=== PATIENT | male | born 1985 | race Caucasian/White ===

== ENCOUNTER 2017-04-03 18:53 | Inpatient (IN) | payer OTHER ==
[~2017-04-03] VITALS: Ht 172.7 cm; Wt 85.0 kg
[2017-04-03] MEDS ORDERED: SODIUM CHLOR 0.9% 1000 ML INJ 1,000 ML IV SCH (19:12)
[2017-04-03] MEDS ORDERED: ZOLO50TA PO (19:14)
[2017-04-03] MEDS ORDERED: DIPHTH/TETANUS/ACEL PERTUSSIS (BOOSTER) 0.5 ML VIAL/PFS IM ONE (19:15)
[2017-04-03] MEDS ORDERED: SODIUM CHLORIDE 0.9% FLUSH 10 ML FLUSH IVF PRN (19:15)
[2017-04-03] MEDS ORDERED: VANCOMYCIN INJ 1,000 MG in SODIUM CHLOR 0.9% 250 ML INJ 250 ML IV ONE (19:15)
[2017-04-03] MEDS ORDERED: ONDANSETRON HCL 4 MG/2 ML VIAL IV PUSH ONE (19:15)
[2017-04-03] MEDS ORDERED: MORPHINE SULFATE 4 MG/ML INJ IV PUSH ONE (19:15)
[2017-04-03] MEDS ORDERED: CLINDAMYCIN INJ 600 MG in SODIUM CHLORIDE 0.9% INJ 100 ML IV ONE (19:15)
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
[2017-04-03 19:30] VITALS: BP 114/78; PULSE 89; RESP 22; TEMP 99; O2SAT 99
[2017-04-03 19:42] LABS: AUTOMATED NEUTROPHIL # 13.5 TH/MM3 (1.8-7.7); BASOPHIL # 0.1 TH/MM3 (0-0.2); BASOPHIL % 0.4 % (0.0-2.0); EOSINOPHIL # 0.1 TH/MM3 (0-0.4); EOSINOPHIL % 0.4 % (0.0-4.0); HEMATOCRIT 42.9 % (39.0-51.0); HEMO FLAGS DIFF FINAL; LYMPHOCYTE # 5.1 TH/MM3 (1.0-4.8); MEAN CELL VOLUME 84.8 FL (80.0-100.0); MEAN CORPUSCULAR HEMOGLOBIN 29.4 PG (27.0-34.0); MEAN CORPUSCULAR HGB CONC 34.7 % (32.0-36.0); NEUT % 68.2 % (16.0-70.0); PLATELET COUNT 361 TH/MM3 (150-450); RED BLOOD COUNT 5.06 MIL/MM3 (4.50-5.90); RED CELL DISTRIBUTION WIDTH 12.8 % (11.6-17.2); WHITE BLOOD COUNT 19.7 TH/MM3 (4.0-11.0)
[2017-04-03 19:43] LABS: I-STAT POTASSIUM 3.4 MMOL/L (3.5-4.9); I-STAT SODIUM 141 MMOL/L (138-146)
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
[2017-04-03 19:51] LABS: APTT (PATIENT) 24.5 SEC (24.3-30.1); INTERNATIONAL NORMALIZED RATIO 0.9 RATIO; PROTHROMBIN TIME - PATIENT 10.1 SEC (9.8-11.6)
[2017-04-03] MEDS ORDERED: IOHEXOL 350 MG/ML 10 ML VIAL (for RAD DIAG) IVCONTRAST ONE (19:52)
[2017-04-03 19:56] LABS: ALT (GPT) 108 U/L (12-78)
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
[2017-04-03 19:58] LABS: ALKALINE PHOSPHATASE 77 U/L (45-117); TOTAL BILIRUBIN ADULT 0.3 MG/DL (0.2-1.0)
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
[2017-04-03 20:08] LABS: ANION GAP 12 MEQ/L (5-15); AST (GOT) 105 U/L (15-37); BICARBONATE 21.9 MEQ/L (21.0-32.0); BLOOD UREA NITROGEN 10 MG/DL (7-18); CHLORIDE 106 MEQ/L (98-107); GLOMERULAR FILTRATION RATE 69 ML/MIN (>89); POTASSIUM 3.3 MEQ/L (3.5-5.1); SODIUM (NA) 140 MEQ/L (136-145)
[2017-04-03 20:09] LABS: ALCOHOL 227 MG/DL (0-5)
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
[2017-04-03 20:12] VITALS: O2SAT 99
[2017-04-03 20:13] VITALS: BP 119/78; PULSE 99; RESP 22; O2SAT 99
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
[2017-04-03] MEDS ORDERED: SODIUM CHLOR 0.9% 1000 ML INJ 1,000 ML IV ONE (20:30)
[2017-04-03] MEDS ORDERED: HYDROmorphone HCL PF 1 MG/ML VIAL IV PUSH ONE (20:30)
--- NOTE | 2017-04-03 20:34 | PD ---
Physical Exam Date Seen by Provider: Apr 03, 2017 Time Seen by Provider: 20:33 Narrative I was asked by Dr. Ramirez to close several lacerations to this young man's face and scalp. Patient has a foreign half centimeter linear laceration to the right anterior chin, as well as a 1-1/2 cm linear laceration to the right cheek , as well as a contusion type laceration to the right posterior parietal scalp. Please see procedure note. Data Data Last Documented VS Vital Signs Date Time Temp Pulse Resp B/P (MAP) Pulse Ox O2 Delivery O2 Flow Rate FiO2 04/03/17 20:13 99 22 119/78 (92) 99 Nasal Cannula 3.00 04/03/17 19:30 99.0 Orders Orders I-Stat Profile (04/03/17 19:12) I-Stat Creatinine (04/03/17 19:12) Complete Blood Count With Diff (04/03/17 19:12) Prothrombin Time / Inr (Pt) (04/03/17 19:12) Act Partial Throm Time (Ptt) (04/03/17 19:12) Type And Screen (04/03/17 19:12) Alcohol (Ethanol) (04/03/17 19:12) Ct Brain W/O Iv Contrast(Rout) (04/03/17 19:12) Ct Cerv Spine W/O Contrast (04/03/17 19:12) Ct Abd/Pel W Iv Contrast(Rout) (04/03/17 19:12) Ct Thorax/ Chest W Iv Contrast (04/03/17 19:12) Ct Facial Bones W/O Iv Cont (04/03/17 19:12) Iv Access Insert/Monitor (04/03/17 19:12) Ecg Monitoring (04/03/17 19:12) Oximetry (04/03/17 19:12) Oxygen Administration (04/03/17 19:12) Remove Backboard (04/03/17 19:12) Splint Or Brace Apply/Monitor (04/03/17 19:12) Morphine Inj (Morphine Inj) (04/03/17 19:15) Ondansetron Inj (Zofran Inj) (04/03/17 19:15) Owcn-Yuw-Tloyai (Booster) Inj (Boostrix (04/03/17 19:15) Sodium Chlor 0.9% 1000 Ml Inj (Ns 1000 M (04/03/17 19:12) Sodium Chloride 0.9% Flush (Ns Flush) (04/03/17 19:15) Drug Screen, Random Urine (04/03/17 19:12) Clindamycin Inj (Cleocin Inj) (04/03/17 19:15) Vancomycin Inj (Vancomycin Inj) (04/03/17 19:15) Comprehensive Metabolic Panel (04/03/17 19:12) Forearm (2vws) (04/03/17 ) Iohexol 350 Inj (Omnipaque 350 Inj) (04/03/17 19:52) Hydromorphone Pf Inj (Dilaudid Pf Inj) (04/03/17 20:30) Sodium Chlor 0.9% 1000 Ml Inj (Ns 1000 M (04/03/17 20:30) Lidocai-Epi 2%-1:100,000 Inj (Xylocaine- (04/03/17 20:45) Admit Order (Ed Use Only) (04/03/17 20:31) School Speech Therapist / Telemetry ASHLEY.Q8H (04/03/17 20:31) Activity Bed Rest (04/03/17 20:31) Notify Dr: Other (04/03/17 20:31) Labs Laboratory Tests Test 04/03/17 19:25 White Blood Count 19.7 TH/MM3 Red Blood Count 5.06 MIL/MM3 Hemoglobin 14.9 GM/DL Bedside Hemoglobin 14.3 G/DL Hematocrit 42.9 % Bedside Hematocrit 42.0 % Mean Corpuscular Volume 84.8 FL Mean Corpuscular Hemoglobin 29.4 PG Mean Corpuscular Hemoglobin Concent 34.7 % Red Cell Distribution Width 12.8 % Platelet Count 361 TH/MM3 Mean Platelet Volume 6.8 FL Neutrophils (%) (Auto) 68.2 % Lymphocytes (%) (Auto) 26.0 % Monocytes (%) (Auto) 5.0 % Eosinophils (%) (Auto) 0.4 % Basophils (%) (Auto) 0.4 % Neutrophils # (Auto) 13.5 TH/MM3 Lymphocytes # (Auto) 5.1 TH/MM3 Monocytes # (Auto) 1.0 TH/MM3 Eosinophils # (Auto) 0.1 TH/MM3 Basophils # (Auto) 0.1 TH/MM3 CBC Comment DIFF FINAL Differential Comment Prothrombin Time 10.1 SEC Prothromb Time International Ratio 0.9 RATIO Activated Partial Thromboplast Time 24.5 SEC Bedside Sodium 141 MMOL/L Blood Urea Nitrogen 10 MG/DL Creatinine 1.20 MG/DL Random Glucose 139 MG/DL Total Protein 7.3 GM/DL Albumin 4.0 GM/DL Calcium Level 8.6 MG/DL Alkaline Phosphatase 77 U/L Aspartate Amino Transf (AST/SGOT) 105 U/L Alanine Aminotransferase (ALT/SGPT) 108 U/L Total Bilirubin 0.3 MG/DL Sodium Level 140 MEQ/L Potassium Level 3.3 MEQ/L Chloride Level 106 MEQ/L Carbon Dioxide Level 21.9 MEQ/L Bedside Potassium 3.4 MMOL/L Bedside Chloride 104 MMOL/L Anion Gap 12 MEQ/L Bedside Blood Urea Nitrogen 11 MG/DL Bedside Creatinine 1.3 MG/DL Estimat Glomerular Filtration Rate 69 ML/MIN Bedside Glucose 132 MG/DL Ethyl Alcohol Level 227 MG/DL [facility] Medical Record Reviewed: Yes Supervised Visit with TORRES: Yes Procedures Procedure Narrative LACERATION #1 LOCATION: Right anterior lower chin LENGTH: 4-1/2 cm NUMBER OF STITCHES/JOSE: 3 interrupted horizontal mattress, and 2 interrupted simple REPAIR: The area of the laceration was prepped with Betadine and sterilely draped. The laceration was infiltrated with 3 mL 2% lidocaine without. The wound was copiously irrigated and explored without evidence of foreign body, tendon injury or neurovascular injury. The wound was closed using 5-0 Prolene. This was a single layer repair. The patient was advised to keep the wound clean and dry. Patient tolerated the procedure well. LACERATION #2 LOCATION: Lower left lip just crossing the vermilion border LENGTH: 1 cm NUMBER OF STITCHES/JOSE: 2 interrupted simple sutures REPAIR: The area of the laceration was prepped with Betadine and sterilely draped. The laceration was infiltrated with 1.5 mL 2% lidocaine with epi. The wound was copiously irrigated and explored without evidence of foreign body, tendon injury or neurovascular injury. The wound was closed using 5-0 Prolene. This was a single layer repair. The patient was advised to keep the wound clean and dry. Patient tolerated the procedure well. LACERATION LOCATION: Right maxillary cheek LENGTH: 1.5 cm NUMBER OF STITCHES/JOSE: 2 horizontal mattress interrupted, and 1 simple interrupted REPAIR: The area of the laceration was prepped with Betadine and sterilely draped. The laceration was infiltrated with 2 mL 2% lidocaine with epi. The wound was copiously irrigated and explored without evidence of foreign body, tendon injury or neurovascular injury. The wound was closed using 5-0 Prolene. This was a single layer repair. A sterile dressing was applied. The patient was advised to keep the wound clean and dry. Patient tolerated the procedure well. LACERATION LOCATION: Right cheek LENGTH: 0.5 cm NUMBER OF STITCHES/JOSE: 1 horizontal mattress REPAIR: The area of the laceration was prepped with Betadine and sterilely draped. The laceration was infiltrated with 1 mL 2% lidocaine with epi. The wound was copiously irrigated and explored without evidence of foreign body, tendon injury or neurovascular injury. The wound was closed using 5-0 Prolene. This was a single layer repair. A sterile dressing was applied. The patient was advised to keep the wound clean and dry. Patient tolerated the procedure well. LACERATION LOCATION: Right posterior upper parietal scalp LENGTH: 3 cm in star shape NUMBER OF STITCHES/JOSE: 1 horizontal mattress, one simple interrupted REPAIR: The area of the laceration was prepped with Betadine and sterilely draped. The laceration was infiltrated with 3 mL 2% lidocaine with epi. The wound was copiously irrigated and explored without evidence of foreign body, tendon injury or neurovascular injury. The wound was closed using 3-0 Prolene. This was a single layer repair. A sterile dressing was applied. The patient was advised to keep the wound clean and dry. Patient tolerated the procedure well. Diagnosis Primary Impression: right open wrist fracture dislocation Additional Impressions: cephalohematoma with scalp flap laceration right superior inferior pubic ramus fracture Condition: Stable Jose Eduardo Joseph Apr 03, 2017 20:34
[2017-04-03] MEDS ORDERED: MIDAZOLAM HCL 5 MG/ML VIAL (1 ML) ONE (20:44)
[2017-04-03] MEDS ORDERED: MIDAZOLAM HCL 5 MG/5 ML VIAL IV PUSH ONE (20:45)
[2017-04-03] MEDS ORDERED: LIDOCAINE 2%/EPINEPHrine 1:100,000 20ML MDV NERV BLOCK ONE (20:45)
[2017-04-03 20:50] VITALS: O2SAT 100
[2017-04-03 21:13] VITALS: BP 142/68; PULSE 108; RESP 18; O2SAT 99
[2017-04-03] MEDS ORDERED: CHLORHEXIDINE GLUCONATE 2 % 1 PACK (2 CLOTHS) TOP PRN (21:15)
[2017-04-03] MEDS ORDERED: DOCUSATE SODIUM 100 MG CAP PO SCH (21:15)
[2017-04-03] MEDS: BACITRACIN TOP OINT 15 GM TUBE TOP SCH (21:15)
[2017-04-03] MEDS ORDERED: ONDANSETRON HCL 4 MG/2 ML VIAL IV PUSH PRN (21:15)
[2017-04-03] MEDS ORDERED: MISCELLANEOUS NURSING INFORMATION XX SCH (21:15)
[2017-04-03] MEDS ORDERED: MAGNESIUM HYDROXIDE SUSP 30 ML CUP PO PRN (21:15)
[2017-04-03] MEDS ORDERED: ENALAPRILAT 1.25 MG/ML VIAL IV PUSH PRN (21:15)
[2017-04-03] MEDS ORDERED: ACETAMINOPHEN/HYDROcodone 325 MG/5 MG TAB PO PRN ×2 (21:15)
[2017-04-03] MEDS ORDERED: NALOXONE HCL 0.4 MG/ML AMP IV PUSH PRN (21:15)
[2017-04-03] MEDS ORDERED: PROPOFOL 500 MG/50 ML BTL IV ONE (21:30)
[2017-04-03] MEDS: PCA - TOTAL MG MORPHINE DELIVERED PER SHIFT SCH (22:00)
[2017-04-03] MEDS: SODIUM CHLOR 0.9% 1000 ML INJ 1,000 ML IV SCH (22:49)
[2017-04-03] MEDS: MORPHINE SULFATE 30 MG/30 ML PCA IV SCH (22:55)
[2017-04-04] VITALS (7 sets, daily range): BP systolic 129–181; BP diastolic 62–95; PULSE 97–127; RESP 16–22; TEMP 96.9–99; O2SAT 90–98
[2017-04-04] MEDS: MORPHINE SULFATE 30 MG/30 ML PCA IV SCH ×2 (01:51→06:19)
[2017-04-04] MEDS ORDERED: CHLORHEXIDINE GLUCONATE 2 % 1 PACK (2 CLOTHS) TOP SCH (04:00)
[2017-04-04] MEDS ORDERED: CLINDAMYCIN PHOS 600 MG/4 ML VIAL IM SCH (05:00)
[2017-04-04] MEDS: PCA - TOTAL MG MORPHINE DELIVERED PER SHIFT SCH (05:52)
[2017-04-04 06:34] LABS: AUTOMATED NEUTROPHIL # 9.2 TH/MM3 (1.8-7.7); BASOPHIL % 0.1 % (0.0-2.0); HEMATOCRIT 37.8 % (39.0-51.0); HEMO FLAGS DIFF FINAL; LYMPH % 14.7 % (9.0-44.0); LYMPHOCYTE # 1.8 TH/MM3 (1.0-4.8); MEAN CELL VOLUME 84.6 FL (80.0-100.0); MEAN CORPUSCULAR HEMOGLOBIN 29.5 PG (27.0-34.0); MEAN CORPUSCULAR HGB CONC 34.9 % (32.0-36.0); MONO % 12.1 % (0.0-8.0); NEUT % 73.1 % (16.0-70.0); PLATELET COUNT 279 TH/MM3 (150-450); RED BLOOD COUNT 4.46 MIL/MM3 (4.50-5.90); RED CELL DISTRIBUTION WIDTH 12.9 % (11.6-17.2); WHITE BLOOD COUNT 12.6 TH/MM3 (4.0-11.0)
[2017-04-04] MEDS ORDERED: CLINDAMYCIN PHOS 600 MG/4 ML VIAL ONE (06:39)
[2017-04-04] MEDS ORDERED: GENTAMICIN SULFATE 80 MG/2 ML VIAL ONE (06:40)
[2017-04-04] MEDS ORDERED: POVIDONE IODINE 5% (ANTISEPSIS KIT) 4 APPLICATIONS EACH NARE PRN (06:45)
[2017-04-04] MEDS ORDERED: CHLORHEXIDINE GLUCONATE 2 % 1 PACK (2 CLOTHS) TOPICAL PRN (06:45)
[2017-04-04] MEDS ORDERED: LACTATED RINGER'S 1000 ML IV PRN (06:45)
[2017-04-04] MEDS: SODIUM CHLOR 0.9% 1000 ML INJ 1,000 ML IV SCH ×2 (06:47→11:32)
[2017-04-04] MEDS ORDERED: HYDROmorphone HCL PF 2 MG/ML VIAL ONE (06:54)
[2017-04-04] MEDS ORDERED: CLINDAMYCIN 600 MG/NS 100 ML IV SCH ×2 (07:00)
[2017-04-04 07:14] LABS: BICARBONATE 21.9 MEQ/L (21.0-32.0)
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
[2017-04-04] MEDS ORDERED: CHLORHEXIDINE GLUCONATE 0.12% 15 ML CUP ONE (07:37)
[2017-04-04] MEDS ORDERED: PANTOPRAZOLE SODIUM 40 MG VIAL IV PUSH ONE (08:00)
[2017-04-04] MEDS ORDERED: LACTATED RINGER'S 1000 ML INJ 1,000 ML IV SCH (08:11)
--- NOTE | 2017-04-04 08:21 | PD.OP ---
cc: Paulie Marie MD Operative Report Date of Surgery: Apr 04, 2017 Preoperative Diagnosis: Right distal radius fracture with distal radial ulnar joint dislocation Nondisplaced pelvic fractures Postoperative Diagnosis: Procedure: Irrigation and debridement of open fracture, open reduction of distal radial ulnar joint dislocation, open reduction internal fixation of intra-articular distal radius fracture Surgeon: Paulie Marie Production Broacher(s): SYEDA Kingsley PA-C The surgical procedure was assisted by my physician training and development assistant. My P.A. presence was necessary throughout this case for the manipulation and positioning of the surgical extremity. My P.A. was assisting me throughout the duration of this procedure. The skill set of a physician training and development assistant was medically necessary to complete this procedure. During the surgical case the rn surgical was working at the back table and the physician training and development assistant was directly assisting me. Operation and Findings: Patient was seen and evaluated preoperatively and found to have a displaced open right distal radius fracture with distal radial ulnar joint dislocation. Informed consent was obtained after detailed discussion of risk and benefits including bleeding, infection, injury to arteries, nerves, and blood vessels, weakness and numbness of hand, and tendon rupture. Informed consent was obtained. Patient received IV antibiotics prior to incision. Timeout procedure was performed. Operative extremity was prepped with alcohol followed by Hibiclens and draped usual sterile fashion. A standard volar approach to the distal radius was utilized. A 3 inch incision was made over the FCR tendon. Tendon sheath was opened. Pronator quadratus was elevated up. The fracture site was now visualized. The fracture did have intra-articular extension. At this point attention was turned to irrigation debridement of the fracture site. Skin subcutaneous tissue and fascia were sharply debrided. The fracture site was cleaned with curettes. The traumatic laceration was also debrided. Overall tissue appeared to be relatively healthy. The wound was now thoroughly irrigated with sterile saline. Next attention was turned to the distal radial ulnar joint. The distal radial ulnar joint was palpated through the open laceration. The joint was carefully manipulated. The distal radial ulnar joint was reduced. Fluoroscopy confirmed reduction. The joint was stable in full supination but did have some subluxation with pronation. Next attention was turned towards open reduction internal fixation of the fracture. Traction was applied. The articular surface was reduced. Fracture fragments were manipulated to achieve excellent reduction. K wires were used to hold provisional fixation. Fluoroscopy confirmed appropriate alignment of fracture. A Synthes variable angle plate was selected. Plate was provisionally fixed to bone with K wires. 2.7 and 2.4 cortical screws were used to compress plate to bone. Fluoroscopy confirmed appropriate alignment of fracture with well-placed hardware. Multiple 2.4 locking screws were now placed distally. Screws were predrilled and measured for appropriate length. K wires were removed. Final fluoroscopy revealed excellent of fracture with well-placed hardware. The wound was thoroughly irrigated with sterile saline. Subcutaneous tissue was closed with 3-0 PDS and skin was closed with 3-0 nylon. Sterile dressings were applied with Xeroform, 4 x 4, soft roll, and a well padded long arm splint with the forearm in supination to keep the distal radioulnar joint reduced. Patient was awakened and transferred to recovery room in stable condition Paulie Marie MD Apr 04, 2017 08:21
[2017-04-04] MEDS ORDERED: HYDR-3583 PO (08:52)
[2017-04-04] MEDS: DOCUSATE SODIUM 50 MG/SENNA 8.6 MG TAB PO SCH ×2 (08:52→20:27)
[2017-04-04] MEDS: SERTRALINE HCL 50 MG TAB PO SCH (08:52)
[2017-04-04] MEDS: BACITRACIN TOP OINT 15 GM TUBE TOP SCH ×2 (08:52→20:27)
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
[2017-04-04] MEDS ORDERED: *RESP: ALBUTEROL 2.5 MG/3 ML NEB (PRN) PERIprocedural Use ONLY NEB ONE (09:05)
[2017-04-04] MEDS ORDERED: *MEPERIDINE 25 MG INJ VIAL PERIprocedural Use ONLY ONE (09:06)
[2017-04-04] MEDS ORDERED: methylPREDNISolone SOD SUCC 125 MG/2 ML VIAL ONE (09:20)
[2017-04-04] MEDS ORDERED: methylPREDNISolone SOD SUCC 125 MG/2 ML VIAL IV ONE (09:45)
[2017-04-04] MEDS ORDERED: *LABETALOL HCL 100 MG/20 ML VIAL PERIprocedural Use ONLY ONE (09:57)
[2017-04-04] MEDS ORDERED: *morphine SULFATE 8 MG/ML PERIprocedure ONLY ONE (09:57)
[2017-04-04] MEDS ORDERED: DO NOT ADM ANY ANTICOAGULANT DRUGS PRN (10:00)
--- NOTE | 2017-04-04 10:09 | RADRPT ---
EXAM DATE/TIME: 04/04/2017 08:05 [facility] COMPARISON: No previous studies available for comparison. INDICATIONS : ORIF right wrist fracture. MEDICAL HISTORY : Unobtainable. SURGICAL HISTORY : Unobtainable. ENCOUNTER: Subsequent ACUITY: 2 days PAIN SCORE: Non-responsive. LOCATION: Right wrist FINDINGS: Status post internal fixation of a fracture involving the distal radius. There is good position and a lignment of the fracture fragments. The hardware is grossly intact. There is good alignment at the ra diocarpal joint. CONCLUSION: Good position and alignment on this postoperative study. Earl Willis MD on April 04, 2017 at 10:07 Board Certified Radiologist. This report was verified electronically.
[2017-04-04] MEDS: VANCOMYCIN INJ 1,000 MG in SODIUM CHLOR 0.9% 250 ML INJ 250 ML IV SCH ×2 (10:30→22:15)
[2017-04-04] MEDS ORDERED: MIDAZOLAM HCL 2 MG/2 ML VIAL IV ONE (12:00)
[2017-04-04] MEDS ORDERED: PROPOFOL 200 MG/20 ML AMP IV ONE (12:00)
[2017-04-04] MEDS ORDERED: SUCCINYLCHOLINE CHLORIDE 100 MG/5 ML SYRINGE IV PUSH ONE (12:00)
[2017-04-04] MEDS ORDERED: GLYCOPYRROLATE 1 MG/5 ML SYRINGE IV PUSH ONE (12:00)
[2017-04-04] MEDS ORDERED: LACTATED RINGER'S 1000 ML INJ 1,000 ML IV ONE (12:00)
[2017-04-04] MEDS ORDERED: ROCURONIUM INJ 50 MG/5 ML SYRINGE IV PUSH ONE (12:00)
[2017-04-04] MEDS ORDERED: LIDOCAINE HCL 1% PF 5 ML AMPULE OTHER ONE (12:00)
[2017-04-04] MEDS ORDERED: DEXAMETHASONE SOD PHOS 4 MG/ML VIAL IV ONE (12:00)
[2017-04-04] MEDS ORDERED: NEOSTIGMINE 3 MG/3 ML SYR IV ONE (12:00)
[2017-04-04] MEDS ORDERED: ONDANSETRON HCL 4 MG/2 ML VIAL IV PUSH ONE (12:00)
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
[2017-04-04] MEDS: CLINDAMYCIN INJ 900 MG in SODIUM CHLORIDE 0.9% INJ 100 ML IV SCH (15:00)
[2017-04-04] MEDS: ACETAMINOPHEN/HYDROcodone 325 MG/10 MG TAB PO PRN ×3 (16:11→22:16)
--- NOTE | 2017-04-04 17:13 | RADRPT ---
EXAM DATE/TIME: 04/04/2017 16:43 [facility] COMPARISON: CHEST SINGLE AP, April 04, 2017, 13:44. INDICATIONS : Rule out pneumothorax. MEDICAL HISTORY : None. SURGICAL HISTORY : ORIF, right wrist. ENCOUNTER: Subsequent ACUITY: 2 days PAIN SCORE: 7/10 LOCATION: Multiple areas. FINDINGS: PA and lateral views of the chest demonstrate the lungs to be symmetrically aerated without evidence of mass, infiltrate or effusion. No evidence of pneumothorax. The cardiomediastinal contours are unr emarkable. Osseous structures are intact. CONCLUSION: No acute disease. No pneumothorax. Earl Willis MD on April 04, 2017 at 17:10 Board Certified Radiologist. This report was verified electronically.
[2017-04-04] MEDS ORDERED: MAGN400S PO (21:09)
[2017-04-04] MEDS ORDERED: SENN1TAB PO (21:09)
[2017-04-04] MEDS ORDERED: CANE/WOOD/MENS1 MI1 (21:13)
[2017-04-05] VITALS (9 sets, daily range): BP systolic 139–174; BP diastolic 76–96; PULSE 82–104; RESP 17–19; TEMP 96.7–98.8; O2SAT 95–97
[2017-04-05] MEDS: ACETAMINOPHEN/HYDROcodone 325 MG/10 MG TAB PO PRN ×6 (01:12→22:33)
[2017-04-05] MEDS: MORPHINE SULFATE 4 MG/ML INJ IV PUSH PRN ×6 (02:56→20:08)
--- NOTE | 2017-04-05 07:21 | PD.ORT.PN ---
Subjective Subjective Remarks Pain controlled with no new complaints Objective Vitals Vital Signs Date Time Temp Pulse Resp B/P (MAP) Pulse Ox O2 Delivery O2 Flow Rate FiO2 04/05/17 04:00 98.8 90 18 168/88 (114) 95 04/05/17 00:00 98.4 104 18 156/94 (114) 97 04/04/17 20:28 98 Nasal Cannula 4.00 04/04/17 20:00 99.0 97 18 145/73 (97) 97 04/04/17 16:00 97.4 123 20 181/95 (123) 90 04/04/17 12:00 98.8 127 16 130/62 (84) 90 04/04/17 10:55 112 19 128/78 (95) 94 Nasal Cannula 3 04/04/17 10:45 98.7 114 17 110/52 (71) 94 Nasal Cannula 3 04/04/17 10:30 115 19 146/66 (92) 95 Nasal Cannula 3 04/04/17 10:15 118 18 153/69 (97) 94 Nasal Cannula 5 04/04/17 10:00 120 20 171/72 (105) 95 Bi-Pap 04/04/17 09:45 136 30 176/76 (109) 97 Bi-Pap 04/04/17 09:35 96 45 04/04/17 09:30 145 29 166/69 (101) 96 Non-Rebreather 04/04/17 09:16 Aerosol Mask 04/04/17 09:15 117 24 156/78 (104) 98 Ambu Bag 04/04/17 09:10 98.1 128 15 148/70 (96) 74 Simple Mask 6 I/O 04/04/17 04/04/17 04/04/17 04/05/17 04/05/17 04/05/17 07:00 15:00 23:00 07:00 15:00 23:00 Intake Total 709 ml 1200 ml 300 ml 1590 ml Output Total 900 ml 150 ml Balance -191 ml 1050 ml 300 ml 1590 ml Intake Oral 300 ml 240 ml IV Total 709 ml 0 ml 1350 ml Other 1200 ml Output Urine Total 900 ml 100 ml Estimated Blood Loss 50 ml # Voids 3 3 # Bowel Movements 0 Result Diagram: 04/04/1760504/04/17605 Imaging Last 72 hours Impressions Wrist X-Ray 04/04/17 Signed Impressions: Service Date/Time: Tuesday, April 04, 2017 08:05 - CONCLUSION: Good position and alignment on this postoperative study. Earl Willis MD Chest X-Ray 04/04/17 Signed Impressions: Service Date/Time: Tuesday, April 04, 2017 16:43 - CONCLUSION: No acute disease. No pneumothorax. Earl Willis MD Chest X-Ray 04/04/17 Signed Impressions: Service Date/Time: Tuesday, April 04, 2017 13:44 - CONCLUSION: Relative reduction in density of the right hemithorax relative to the left. I cannot completely exclude an anterior pneumothorax. Consider dedicated upright PA and lateral views of the chest to further evaluate. Otherwise no acute abnormality. Jeramie Rice Jr., MD Maxillofacial CT 04/03/171911 Signed Impressions: Service Date/Time: Monday, April 03, 2017 19:41 - CONCLUSION: No acute facial fractures or basilar skull fractures identified. Complete opacification left maxillary sinus and an air-fluid level in the right sphenoid compartment Tay Harp MD Head CT 04/03/171911 Signed Impressions: Service Date/Time: Monday, April 03, 2017 19:41 - CONCLUSION: Intracranially negative. Superficial cephalhematoma right parietal vertex. Left maxillary sinus is opacified with intact facial bones is visualized Tay Harp MD Chest CT 04/03/171911 Signed Impressions: Service Date/Time: Monday, April 03, 2017 19:48 - CONCLUSION: Normal examination. Tay Harp MD Cervical Spine CT 04/03/171911 Signed Impressions: Service Date/Time: Monday, April 03, 2017 19:41 - CONCLUSION: Normal examination. Tay Harp MD Abdomen/Pelvis CT 04/03/171911 Signed Impressions: Service Date/Time: Monday, April 03, 2017 19:48 - CONCLUSION: Intra-abdominal pelvic contents are normal. Acute fractures of the right superior pubic ramus extending to its junction with the acetabulum and of the right inferior pubic ramus. There is some deformity of the anterior aspect of right ribs #3 and 4 without cortical break. Age is indeterminate. Clinical correlation recommended to exclude acute fracture Tay Harp MD Radius/Ulna X-Ray 10/16/17 0000 Signed Impressions: Service Date/Time: Monday, April 03, 2017 19:31 - CONCLUSION: Comminuted fracture distal radius distal fragment primarily epiphysis displaced completely medially and overriding the residual proximal fragment. Carpal bones are dislocated with the epiphyseal fragment Tay Harp MD Objective Remarks Right upper extremity: Splint intact clean and dry. Intact sensation in all fingers. Is able to extend and flex all fingers. Good capillary refills and tissue perfusion Pelvic pain to palpation of right rami and posterior pelvis. Right lower extremity full range of motion neurovascularly intact. Active dorsiflexion plantar flexion of foot Assessment & Plan Assessment and Plan Right open distal radius fracture dislocation status post irrigation debridement and ORIF POD 1 Nonweightbearing right upper extremity Maintain splint Elevate to decrease swelling Postoperative antibiotics for 48 hours Right inferior and superior pubic rami fracture and right sacral fracture Stable fractures and we'll continue to be weightbearing as tolerated with aid of cane. If difficulty with cane he may need a hemiwalker We'll plan on discharge tomorrow once antibiotics are completed from orthopedic standpoint Follow-up with Dr. Marie or PA in 2 weeks Star Villalpando Jr. Apr 05, 2017 07:21
[2017-04-05] MEDS: DOCUSATE SODIUM 50 MG/SENNA 8.6 MG TAB PO SCH ×2 (08:36→20:13)
[2017-04-05] MEDS: FAMOTIDINE 20 MG TAB PO SCH ×2 (08:36→20:07)
[2017-04-05] MEDS: SERTRALINE HCL 50 MG TAB PO SCH (08:37)
[2017-04-05] MEDS: LACTULOSE SYRUP 20 GM/30 ML CUP PO SCH (08:38)
[2017-04-05] MEDS: CLINDAMYCIN INJ 900 MG in SODIUM CHLORIDE 0.9% INJ 100 ML IV SCH ×3 (08:38)
[2017-04-05] MEDS: SODIUM CHLORIDE 0.9% FLUSH 10 ML FLUSH IV FLUSH PRN (08:39)
[2017-04-05] MEDS: BACITRACIN TOP OINT 15 GM TUBE TOP SCH ×2 (08:39→20:08)
[2017-04-05] MEDS: VANCOMYCIN INJ 1,000 MG in SODIUM CHLOR 0.9% 250 ML INJ 250 ML IV SCH ×2 (10:14→20:07)
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
[2017-04-05] MEDS: GABAPENTIN 300 MG CAP PO SCH ×2 (12:32→16:42)
[2017-04-05] MEDS: KETOROLAC TROMETHAMINE 30 MG/ML (IVP) VIAL IV PUSH SCH ×2 (12:32→16:42)
--- NOTE | 2017-04-05 13:33 | HHI.FF ---
Face to Face Verification Diagnosis: (1) Right wrist fracture (2) Fracture of right pelvis Physical Therapy Order: Evaluate and Treat, Improve ambulation, Strength and gait training Occupational Therapy Order: Evaluate and Treat, Gross motor coordination, Fine motor coordination Home Health Nursing Order: Medical education Signs/symptoms of disease process Medication education-adverse effect Nursing assessment with vital signs I have seen patient Janak Rowell on 04/05/17. My clinical findings support the need for the requested home health care services because: Ltd mobility - disease progression Deconditioned w/ increased weakness Limited ability to care for self High risk of falls I certify that my clinical findings support that this patient is homebound because: Post-op weakness Impaired cognitive ability/safety Unsteady gait/balance Unsafe to leave home unassisted Unable to use public transportation Shira Lane Apr 05, 2017 13:33
[2017-04-05] MEDS: ENOXAPARIN SODIUM 30 MG/0.3 ML SYRINGE SQ SCH (15:10)
[2017-04-05] MEDS ORDERED: MAGNESIUM HYDROXIDE SUSP 30 ML CUP PO SCH (21:00)
[2017-04-06] VITALS: BP 132/74; PULSE 81; RESP 17; TEMP 96.4; O2SAT 95
[2017-04-06] MEDS: MORPHINE SULFATE 4 MG/ML INJ IV PUSH PRN ×4 (00:47→11:44)
[2017-04-06] MEDS: ACETAMINOPHEN/HYDROcodone 325 MG/10 MG TAB PO PRN ×3 (02:25→13:52)
[2017-04-06] MEDS: ENOXAPARIN SODIUM 30 MG/0.3 ML SYRINGE SQ SCH (02:26)
[2017-04-06 04:00] VITALS: BP 152/78; PULSE 85; RESP 17; TEMP 96; O2SAT 95
[2017-04-06] MEDS: SODIUM CHLORIDE 0.9% FLUSH 10 ML FLUSH IV FLUSH PRN ×2 (06:55→08:30)
[2017-04-06] MEDS: KETOROLAC TROMETHAMINE 30 MG/ML (IVP) VIAL IV PUSH SCH ×3 (06:57→11:44)
--- NOTE | 2017-04-06 07:02 | PD.ORT.PN ---
Subjective Subjective Remarks Pain controlled with no new complaints Objective Vitals Vital Signs Date Time Temp Pulse Resp B/P (MAP) Pulse Ox O2 Delivery O2 Flow Rate FiO2 04/06/17 06:58 18 04/06/17 04:00 96.0 85 17 152/78 (102) 95 04/06/17 03:56 18 04/06/17 01:00 18 04/06/17 00:00 96.4 81 17 132/74 (93) 95 04/05/17 20:00 96.7 90 17 150/76 (100) 95 04/05/17 19:40 90 04/05/17 16:51 96 21 04/05/17 16:00 97.2 84 17 168/91 (116) 97 04/05/17 12:00 97.2 82 19 174/86 (115) 96 04/05/17 09:28 97 04/05/17 08:00 97.3 98 18 139/96 (110) 97 I/O 04/05/17 04/05/17 04/05/17 04/06/17 04/06/17 04/06/17 07:00 15:00 23:00 07:00 15:00 23:00 Intake Total 1590 ml 356 ml 1080 ml 240 ml Balance 1590 ml 356 ml 1080 ml 240 ml Intake Oral 240 ml 1080 ml 240 ml IV Total 1350 ml 356 ml # Voids 3 4 3 # Bowel Movements 0 1 Result Diagram: 04/04/17 0606 04/04/17 0606 Imaging Last 72 hours Impressions Wrist X-Ray 04/04/17 0000 Signed Impressions: Service Date/Time: Tuesday, April 04, 2017 08:05 - CONCLUSION: Good position and alignment on this postoperative study. Earl Willis MD Chest X-Ray 04/04/17 0000 Signed Impressions: Service Date/Time: Tuesday, April 04, 2017 16:43 - CONCLUSION: No acute disease. No pneumothorax. Earl Willis MD Chest X-Ray 04/04/17 0000 Signed Impressions: Service Date/Time: Tuesday, April 04, 2017 13:44 - CONCLUSION: Relative reduction in density of the right hemithorax relative to the left. I cannot completely exclude an anterior pneumothorax. Consider dedicated upright PA and lateral views of the chest to further evaluate. Otherwise no acute abnormality. Jeramie Rice Jr., MD Maxillofacial CT 04/03/171911 Signed Impressions: Service Date/Time: Monday, April 03, 2017 19:41 - CONCLUSION: No acute facial fractures or basilar skull fractures identified. Complete opacification left maxillary sinus and an air-fluid level in the right sphenoid compartment Tay Harp MD Head CT 04/03/171911 Signed Impressions: Service Date/Time: Monday, April 03, 2017 19:41 - CONCLUSION: Intracranially negative. Superficial cephalhematoma right parietal vertex. Left maxillary sinus is opacified with intact facial bones is visualized Tay Harp MD Chest CT 04/03/171911 Signed Impressions: Service Date/Time: Monday, April 03, 2017 19:48 - CONCLUSION: Normal examination. Tay Harp MD Cervical Spine CT 04/03/171911 Signed Impressions: Service Date/Time: Monday, April 03, 2017 19:41 - CONCLUSION: Normal examination. Tya Harp MD Abdomen/Pelvis CT 04/03/171911 Signed Impressions: Service Date/Time: Monday, April 03, 2017 19:48 - CONCLUSION: Intra-abdominal pelvic contents are normal. Acute fractures of the right superior pubic ramus extending to its junction with the acetabulum and of the right inferior pubic ramus. There is some deformity of the anterior aspect of right ribs #3 and 4 without cortical break. Age is indeterminate. Clinical correlation recommended to exclude acute fracture Tay Harp MD Radius/Ulna X-Ray 04/03/17 0000 Signed Impressions: Service Date/Time: Monday, April 03, 2017 19:31 - CONCLUSION: Comminuted fracture distal radius distal fragment primarily epiphysis displaced completely medially and overriding the residual proximal fragment. Carpal bones are dislocated with the epiphyseal fragment Tay Harp MD Objective Remarks Right upper extremity: Splint intact clean and dry. Intact sensation in all fingers. Is able to extend and flex all fingers. Good capillary refills and tissue perfusion Pelvic pain to palpation of right rami and posterior pelvis. Right lower extremity full range of motion neurovascularly intact. Active dorsiflexion plantar flexion of foot Assessment & Plan Assessment and Plan Right open distal radius fracture dislocation status post irrigation debridement and ORIF POD 1 Nonweightbearing right upper extremity Maintain splint Elevate to decrease swelling Postoperative antibiotics for 48 hours Right inferior and superior pubic rami fracture and right sacral fracture Stable fractures and we'll continue to be weightbearing as tolerated with aid of cane. If difficulty with cane he may need a hemiwalker We'll plan on discharge today once antibiotics are completed from orthopedic standpoint Follow-up with Dr. Marie or DAYANNA in 2 weeks Star Villalpando Jr. Apr 06, 2017 07:02
[2017-04-06 08:00] VITALS: BP 168/90; PULSE 80; RESP 16; TEMP 97.8; O2SAT 98
[2017-04-06] MEDS: SERTRALINE HCL 50 MG TAB PO SCH (08:28)
[2017-04-06] MEDS: GABAPENTIN 300 MG CAP PO SCH ×2 (08:28→11:43)
[2017-04-06] MEDS: DOCUSATE SODIUM 50 MG/SENNA 8.6 MG TAB PO SCH (08:28)
[2017-04-06] MEDS: FAMOTIDINE 20 MG TAB PO SCH (08:28)
[2017-04-06] MEDS: LACTULOSE SYRUP 20 GM/30 ML CUP PO SCH (08:29)
[2017-04-06] MEDS: BACITRACIN TOP OINT 15 GM TUBE TOP SCH (08:34)
[2017-04-06] MEDS: VANCOMYCIN INJ 1,000 MG in SODIUM CHLOR 0.9% 250 ML INJ 250 ML IV SCH (09:54)
[2017-04-06 11:08] VITALS: PULSE 58
[2017-04-06] MEDS ORDERED: NEUR300C PO (11:26)
[2017-04-06 12:00] VITALS: BP 181/81; PULSE 85; RESP 16; TEMP 98.1; O2SAT 97
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
[2017-04-06] MEDS ORDERED: HYDR-3583 PO (13:55)
== END 2017-04-06 15:57 | disposition home or self-care (01) | DRG 959 ==
LOC: NEPE 18:53 → NEDA 20:36 → N07A 21:48
PROVIDERS: ADMIT Surgery; ATTEND Surgery
PROC: 0HQ1XZZ Repair Face Skin, External Approach (ICD-10-PCS; 2017-04-03)
PROC: 0HQ0XZZ Repair Scalp Skin, External Approach (ICD-10-PCS; 2017-04-03)
PROC: 0PSH04Z Reposition Right Radius with Internal Fixation Device, Open Approach (ICD-10-PCS; 2017-04-04)
PROC: 0RSN0ZZ Reposition Right Wrist Joint, Open Approach (ICD-10-PCS; principal; 2017-04-04 06:59)
DX: S52.571B Other intraarticular fracture of lower end of right radius, initial encounter for open fracture type I or II (principal); S32.591A Other specified fracture of right pubis, initial encounter for closed fracture; S06.2X9A Diffuse traumatic brain injury with loss of consciousness of unspecified duration, initial encounter; S32.10XA Unspecified fracture of sacrum, initial encounter for closed fracture; F32.9 Major depressive disorder, single episode, unspecified; S01.01XA Laceration without foreign body of scalp, initial encounter; S01.81XA Laceration without foreign body of other part of head, initial encounter; S01.411A Laceration without foreign body of right cheek and temporomandibular area, initial encounter; S01.511A Laceration without foreign body of lip, initial encounter; V23.4XXA Motorcycle driver injured in collision with car, pick-up truck or van in traffic accident, initial encounter; Y92.410 Unspecified street and highway as the place of occurrence of the external cause; F10.129 Alcohol abuse with intoxication, unspecified; Y90.7 Blood alcohol level of 200-239 mg/100 ml
CPT/HCPCS: 70450; 70486; 71010; 71020; 71260; 72125; 73090; 73100; 74177; 76000; 80048; 80053; 80307; 82435; 82565; 82947; 84132; 84295; 84520; 85025; 85610; 85730; 86850; 86900; 86901; 90715; 94002; 94150; 94640; 94664; C1713; J0330; J1100; J1170; J1580; J1650; J1885; J2175; J2250; J2270; J2405; J2710; J2930; J3010; J3370; J7030; J7050; J7120; J7613; Q9967

== ENCOUNTER 2017-04-12 19:13 | Emergency (ER) | payer SELFPAY ==
[~2017-04-12 19:13] MED LIST: CANE/WOOD/MENS1 MI1; HYDR-3583 PO; MAGN400S PO; NEUR300C PO; SENN1TAB PO; ZOLO50TA PO
[2017-04-12 19:14] VITALS: BP 128/88; PULSE 88; RESP 18; TEMP 98.7; O2SAT 98
[2017-04-12] MEDS ORDERED: ONDANSETRON HCL 4 MG/2 ML VIAL IV PUSH ONE (20:00)
[2017-04-12] MEDS ORDERED: MORPHINE SULFATE 4 MG/ML INJ IV PUSH ONE (20:00)
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
[2017-04-12 21:23] LABS: AUTOMATED NEUTROPHIL # 8.2 TH/MM3 (1.8-7.7); BASOPHIL # 0.1 TH/MM3 (0-0.2); BASOPHIL % 0.8 % (0.0-2.0); EOSINOPHIL # 0.2 TH/MM3 (0-0.4); EOSINOPHIL % 1.4 % (0.0-4.0); HEMATOCRIT 36.8 % (39.0-51.0); HEMOGLOBIN 12.6 GM/DL (13.0-17.0); LYMPH % 26.5 % (9.0-44.0); LYMPHOCYTE # 3.5 TH/MM3 (1.0-4.8); MEAN CELL VOLUME 86.1 FL (80.0-100.0); MEAN CORPUSCULAR HEMOGLOBIN 29.4 PG (27.0-34.0); MEAN CORPUSCULAR HGB CONC 34.2 % (32.0-36.0); MEAN PLATELET VOLUME 6.8 FL (7.0-11.0); MONO % 9.1 % (0.0-8.0); MONOCYTE # 1.2 TH/MM3 (0-0.9); NEUT % 62.2 % (16.0-70.0); PLATELET COUNT 442 TH/MM3 (150-450); RED BLOOD COUNT 4.27 MIL/MM3 (4.50-5.90); RED CELL DISTRIBUTION WIDTH 13.1 % (11.6-17.2); WHITE BLOOD COUNT 13.2 TH/MM3 (4.0-11.0)
[2017-04-12 21:34] LABS: BICARBONATE 22.5 MEQ/L (21.0-32.0); CALCIUM 9.4 MG/DL (8.5-10.1); CREATININE 0.9 MG/DL (0.60-1.30)
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
[2017-04-12] MEDS ORDERED: IOHEXOL 350 MG/ML 10 ML VIAL (for RAD DIAG) IVCONTRAST ONE (22:26)
[2017-04-12 22:36] LABS: INTERNATIONAL NORMALIZED RATIO 0.9 RATIO; PROTHROMBIN TIME - PATIENT 9.9 SEC (9.8-11.6)
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
[2017-04-12] MEDS ORDERED: PERC5TAB12 PO (22:51)
== END 2017-04-12 23:56 | disposition home or self-care (01) ==
LOC: NEPC 19:13
DX: S32.591D Other specified fracture of right pubis, subsequent encounter for fracture with routine healing (principal); S62.101D Fracture of unspecified carpal bone, right wrist, subsequent encounter for fracture with routine healing; J90 Pleural effusion, not elsewhere classified; J98.11 Atelectasis; F41.9 Anxiety disorder, unspecified; V29.9XXD Motorcycle rider (driver) (passenger) injured in unspecified traffic accident, subsequent encounter; Z72.0 Tobacco use; Z79.899 Other long term (current) drug therapy
CPT/HCPCS: 73502; 74177; 80048; 85025; 85610; 85730; 96374; 96375; 99285; J2270; J2405; Q9967

== ENCOUNTER 2017-04-21 14:11 | Emergency (ER) | payer SELFPAY ==
[~2017-04-21] VITALS: Ht 177.8 cm; Wt 100.0 kg
[~2017-04-21 14:11] MED LIST changes: +PERC5TAB12 PO
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
[2017-04-21] MEDS ORDERED: MORPHINE SULFATE 4 MG/ML INJ IV PUSH ONE ×2 (15:00→17:15)
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
[2017-04-21 15:50] VITALS: BP 136/83; PULSE 67; RESP 18; TEMP 98.2; O2SAT 98
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
[2017-04-21 17:16] VITALS: BP 137/86; PULSE 70; RESP 18; O2SAT 97
[2017-04-21] MEDS ORDERED: HYDR-3366 PO (17:43)
== END 2017-04-21 18:34 | disposition home or self-care (01) ==
LOC: NEPE 14:11
DX: S32.501D Unspecified fracture of right pubis, subsequent encounter for fracture with routine healing (principal); W18.2XXA Fall in (into) shower or empty bathtub, initial encounter; Y93.E1 Activity, personal bathing and showering; Y92.002 Bathroom of unspecified non-institutional (private) residence as the place of occurrence of the external cause; F41.9 Anxiety disorder, unspecified; F03.90 Unspecified dementia, unspecified severity, without behavioral disturbance, psychotic disturbance, mood disturbance, and anxiety
CPT/HCPCS: 72192; 73502; 96374; 96376; 99285; J2270

== ENCOUNTER 2017-04-24 09:31 | Emergency (ER) | payer SELFPAY ==
[~2017-04-24] VITALS: Ht 175.3 cm; Wt 84.0 kg
[~2017-04-24 09:31] MED LIST changes: +HYDR-3366 PO
--- NOTE | 2017-04-24 09:51 | PD ---
HPI Time Seen by Provider: 09:50 PFSH Past Medical History Anxiety: Yes Cancer: No Cardiovascular Problems: No Dementia: No Diabetes: No Diminished Hearing: No Endocrine: No Gastrointestinal Disorders: No Genitourinary: No Immune Disorder: No Implanted Vascular Access Dvce: No Musculoskeletal: No Neurologic: No Psychiatric: Yes Reproductive: No Respiratory: No Past Surgical History Abdominal Surgery: Yes Other Surgery: Yes Social History Alcohol Use: Yes (on occasion) Tobacco Use: Yes (0.5 ppd) Substance Use: No Allergies-Medications (Allergen,Severity, Reaction): Coded Allergies: amoxicillin (Verified Allergy, Mild, rash, 04/24/17) clavulanic acid (Verified Allergy, Mild, rash, 04/24/17) Reported Meds & Prescriptions Reported Meds & Active Scripts Active Zofran (Ondansetron HCl) 4 Mg Tab 4 Mg PO Q6HR PRN Percocet (Oxycodone-Acetaminophen) 5-325 mg Tab 1 Tab PO Q6H PRN Hydrocodone-Acetaminophen 10-325 mg Tab 1 Tab PO Q4H PRN Cane/Wood/Mens Standard (Device) 1 Mis Mis Ea .ROUTE DIRECTED Reported Zoloft (Sertraline HCl) 50 Mg Tab 100 Mg PO DAILY Data Data Last Documented VS Vital Signs Date Time Temp Pulse Resp B/P (MAP) Pulse Ox O2 Delivery O2 Flow Rate FiO2 04/24/17 13:32 04/24/17 12:33 99 15 97 Room Air 04/24/17 09:53 97.7 Orders Orders Hydromorphone Pf Inj (Dilaudid Pf Inj) (04/24/17 12:00) Ondansetron Inj (Zofran Inj) (04/24/17 12:00) Ed Discharge Order (04/24/17 12:47) MDM Scripts Ondansetron (Zofran) 4 Mg Tab 4 MG PO Q6HR Y for NAUSEA OR VOMITING, #15 TAB 0 Refills Prov: Josiane Hodge MD 04/24/17 Oxycodone-Acetaminophen (Percocet) 5-325 mg Tab 1 TAB PO Q6H Y for PAIN, #12 TAB 0 Refills Prov: Josiane Hodge MD 04/24/17 Josiane Hodge MD Apr 24, 2017 09:50
[2017-04-24 09:53] VITALS: BP 141/93; PULSE 69; RESP 12; TEMP 97.7; O2SAT 100
--- NOTE | 2017-04-24 11:57 | PD ---
HPI Chief Complaint: Pain: Acute or Chronic Time Seen by Provider: 11:54 Travel History International Travel<30 days: No Contact w/Intl Traveler<30days: No Traveled to known affect area: No History of Present Illness HPI 32-year-old male that presents to the ED for evaluation of right hip pain. Patient was seen here on March for trauma alert. Patient was admitted secondary to severe fractures to the right arm as well as what appears to be pelvic and sacral fractures. Patient has been here twice since been discharged for secondary to pain. Patient fell about 4 days ago and was evaluated for them and was found to have what appears to be stable fractures. Patient was given pain medication with some relief. Per patient his been doing okay except today to try to get up and he had more pain. Per patient the pain is 10 out of 10. He was given morphine by ambulance. He denies any new injuries or head injuries. He has a cast on his right arm. He has not been able to see his surgeon yet. He hasn't only to amoxicillin and clavulanic acid. Pain is mostly to the right hip. Pain with any range of motion of the right hip. Per patient he can barely ambulate on his for the most part wheelchair bound since the injuries. PFSH Past Medical History Anxiety: Yes Cancer: No Cardiovascular Problems: No Dementia: No Diabetes: No Diminished Hearing: No Endocrine: No Gastrointestinal Disorders: No Genitourinary: No Immune Disorder: No Implanted Vascular Access Dvce: No Musculoskeletal: No Neurologic: No Psychiatric: Yes Reproductive: No Respiratory: No Past Surgical History Abdominal Surgery: Yes Cholecystectomy: Yes Other Surgery: Yes Social History Alcohol Use: Yes (on occasion) Tobacco Use: Yes (0.5 ppd) Substance Use: No Allergies-Medications (Allergen,Severity, Reaction): Coded Allergies: amoxicillin (Verified Allergy, Mild, rash, 04/24/17) clavulanic acid (Verified Allergy, Mild, rash, 04/24/17) Reported Meds & Prescriptions Reported Meds & Active Scripts Active Zofran (Ondansetron HCl) 4 Mg Tab 4 Mg PO Q6HR PRN Percocet (Oxycodone-Acetaminophen) 5-325 mg Tab 1 Tab PO Q6H PRN Hydrocodone-Acetaminophen 10-325 mg Tab 1 Tab PO Q4H PRN Cane/Wood/Mens Standard (Device) 1 Mis Mis Ea .ROUTE DIRECTED Reported Zoloft (Sertraline HCl) 50 Mg Tab 100 Mg PO DAILY Review of Systems Except as stated in HPI: all other systems reviewed are Neg Physical Exam Narrative GENERAL: SKIN: Warm and dry. HEAD: Atraumatic. Normocephalic. EYES: Pupils equal and round. No scleral icterus. No injection or drainage. ENT: No nasal bleeding or discharge. Mucous membranes pink and moist. Tongue is midline. No uvula deviation. NECK: Trachea midline. No JVD. CARDIOVASCULAR: Regular rate and rhythm. No murmurs, S3, S4. RESPIRATORY: No accessory muscle use. Clear to auscultation. Breath sounds equal bilaterally. GASTROINTESTINAL: Abdomen soft, non-tender, nondistended. Hepatic and splenic margins not palpable. MUSCULOSKELETAL: Extremities without clubbing, cyanosis, or edema. No obvious deformities. Full range of motion of the upper and lower extremities bilaterally. 2+ pulses bilaterally. Patient does have significant discomfort with any movement of the right hip. NEUROLOGICAL: Awake and alert. No obvious cranial nerve deficits. Motor grossly within normal limits. Five out of 5 muscle strength in the arms and legs. Normal speech. PSYCHIATRIC: Appropriate mood and affect; insight and judgment normal. Data Data Last Documented VS Vital Signs Date Time Temp Pulse Resp B/P (MAP) Pulse Ox O2 Delivery O2 Flow Rate FiO2 04/24/17 12:33 99 15 126/86 (99) 97 Room Air 04/24/17 09:53 97.7 Orders Orders Hydromorphone Pf Inj (Dilaudid Pf Inj) (04/24/17 12:00) Ondansetron Inj (Zofran Inj) (04/24/17 12:00) Ed Discharge Order (04/24/17 12:47) [facility] Medical Decision Making Medical Screen Exam Complete: Yes Emergency Medical Condition: Yes Medical Record Reviewed: Yes Differential Diagnosis Acute on chronic pain versus chronic pain versus hip pain versus fracture pain Narrative Course 32-year-old male that presents to the ED for evaluation of right hip and pelvic fracture pain. Patient was properly examined and was found to have signs and symptoms consistent with appears to be acute on chronic pain. We'll do imaging to rule out any sign of acute disease. Patient was given pain medications IV. Patient agrees to proceed. Patient has not been able to follow up with Dr. Marie who is the one who has been following him. I was called into the room as patient prefers not to the CAT scan anymore. At this time and this is reasons patient has not had any injuries. Patient states that mainly he is here for pain management. Patient was told that he needs to follow with Dr. Marie for further pain management. He agrees and understands this. I given a prescription of pain medication and Zofran. Patient happy with care. Follow with PCP. See ED worsening symptoms. Diagnosis Primary Impression: Fracture of right pelvis Qualified Codes: S32.501A - Unspecified fracture of right pubis, initial encounter for closed fracture Referrals: Paulie Marie MD Patient Instructions: Narcotic given in the ED, General Instructions Additional Instructions: Take medications as prescribed. Follow-up with PCP. See ED for any worsening symptoms. Do not drink or drive while taking pain medication. Apply ice or heat as needed for pain Med/Other Pt SpecificInfo: Prescription(s) given Scripts Ondansetron (Zofran) 4 Mg Tab 4 MG PO Q6HR Y for NAUSEA OR VOMITING, #15 TAB 0 Refills Prov: Josiane Hodge MD 04/24/17 Oxycodone-Acetaminophen (Percocet) 5-325 mg Tab 1 TAB PO Q6H Y for PAIN, #12 TAB 0 Refills Prov: Josiane Hodge MD 04/24/17 Disposition: 01 DISCHARGE HOME Condition: Stable Preston Werner Apr 24, 2017 11:57
[2017-04-24] MEDS ORDERED: HYDROmorphone HCL PF 1 MG/ML VIAL IV PUSH ONE (12:00)
[2017-04-24] MEDS ORDERED: ONDANSETRON HCL 4 MG/2 ML VIAL IV PUSH ONE (12:00)
[2017-04-24 12:33] VITALS: BP 126/86; PULSE 99; RESP 15; O2SAT 97
[2017-04-24] MEDS ORDERED: ZOFR4TAB PO (12:36)
[2017-04-24] MEDS ORDERED: PERC5TAB12 PO (12:36)
== END 2017-04-24 13:33 | disposition home or self-care (01) ==
LOC: NEPC 09:31
DX: S32.501A Unspecified fracture of right pubis, initial encounter for closed fracture (principal); W19.XXXA Unspecified fall, initial encounter
CPT/HCPCS: 96374; 96375; 99284; J1170; J2405